=== PATIENT | female | born 1980 | race Caucasian/White ===

== ENCOUNTER → 2019-07-06 | Outpatient (CLI) | payer OTHER ==
[2015-01-06 15:55] VITALS: BP 136/64
--- NOTE | 2019-07-06 16:26 | RAD ---
CT brain without contrast. HISTORY: Acute posttraumatic headache CT scan the brain was done without contrast. Comparison is made with an old study from December 2014. There is mild mucosal thickening in the ethmoid sinuses. A skull fracture is not identified. There is no intracranial hemorrhage or subdural hematoma. Ventricles are normal in size. There is no mass or shift of the midline. An acute CVA is not identified. IMPRESSION: 1. No intracranial hemorrhage or acute finding noted. PQRS Compliance Statement: One or more of the following individualized dose reduction techniques were utilized for this examination: 1. Automated exposure control 2. Adjustment of the mA and/or kV according to patient size 3. Use of iterative reconstruction technique Electronically signed by: Liu Dalal MD (07/06/2019 4:23 PM) [id number]
== END | disposition home or self-care (01) ==
LOC: CT 15:21
PROVIDERS: ATTEND Preventive Medicine Occupational Medicine
DX: G44.319 Acute post-traumatic headache, not intractable (principal); J34.89 Other specified disorders of nose and nasal sinuses
CPT/HCPCS: 70450